=== PATIENT | female | born 1995 | race Caucasian/White ===

== ENCOUNTER 2016-09-04 17:11 | Observation (INO) | payer OTHER ==
[~2016-09-04] VITALS: Ht 149.9 cm; Wt 59.9 kg
[2016-09-04 18:00] VITALS: BP 115/59
[2016-09-04 20:43] LABS: BASOPHILS # (AUTO) 0.1 K/uL (0.00-0.22); BASOPHILS % (AUTO) 1.3 % (0.0-2.0); EOSINOPHILS # (AUTO) 0.2 K/uL (0-0.4); EOSINOPHILS % (AUTO) 1.7 % (0.0-4.0); HEMOGLOBIN 10.9 g/dL (12.0-16.0); LYMPHOCYTES # (AUTO) 1.6 K/uL (2.5-16.5); LYMPHOCYTES % (AUTO) 17.6 % (20.5-51.1); MEAN CORPUSCULAR HEMOGLOBIN 30 pg (27-31); MEAN CORPUSCULAR HGB CONC 32 g/dL (33-37); MEAN CORPUSCULAR VOLUME 94 fL (80-94); MONOCYTES # (AUTO) 0.5 K/uL (0.8-1.0); MONOCYTES % (AUTO) 5.4 % (1.7-9.3); NEUTROPHILS # (AUTO) 6.8 K/uL (1.8-7.7); PLATELET COUNT (AUTO) 149 K/uL (140-450); RED BLOOD CELL COUNT(AUTO) 3.63 MIL/uL (4.20-5.40); RED CELL DISTRIBUTION WIDTH 12.8 % (11.6-13.7); WHITE BLOOD COUNT (AUTO) 9.2 K/uL (4.8-10.8)
[2016-09-04 21:01] LABS: PROTHROMBIN TIME 9.8 secs (10.8-13.4)
[2016-09-04] MEDS ORDERED: PREN-546 PO (21:51)
[2016-09-04] MEDS ORDERED: FERR-193 PO (21:51)
== END 2016-09-04 22:40 | disposition home or self-care (01) ==
LOC: MLD 17:11
PROVIDERS: ADMIT Obstetrics & Gynecology; ATTEND Obstetrics & Gynecology
DX: O46.93 Antepartum hemorrhage, unspecified, third trimester (principal); O26.893 Other specified pregnancy related conditions, third trimester; M54.9 Dorsalgia, unspecified; R11.0 Nausea; Z3A.38 38 weeks gestation of pregnancy
CPT/HCPCS: 36415; 76805; 85025; 85379; 85384; 85610; 85730; G0378; Q0092; 81000

== ENCOUNTER 2016-09-13 16:05 | Inpatient (IN) | payer OTHER ==
[~2016-09-13] VITALS: Ht 149.9 cm; Wt 61.2 kg
[~2016-09-13 16:05] MED LIST: FERR-193 PO; PREN-546 PO
[2016-09-13 17:08] VITALS: BP 110/67
[2016-09-13] MEDS ORDERED: MISOPROSTOL 25 MCG TAB ONE (21:21)
[2016-09-13] MEDS: LACTATED RINGERS 1,000 ML IV SCH (21:50)
[2016-09-13] MEDS ORDERED: NALBUPHINE HYDROCHLORIDE 10 MG/ML VIAL IM SCH (22:35)
[2016-09-13] MEDS ORDERED: NALBUPHINE HYDROCHLORIDE 10 MG/ML VIAL IVP PRN (22:35)
[2016-09-13] MEDS ORDERED: OXYTOCIN 10 UNITS/ML VIAL IM SCH (22:35)
[2016-09-13] MEDS ORDERED: LACTATED RINGERS 500 ML IV SCH (22:35)
[2016-09-13] MEDS ORDERED: MISOPROSTOL 25 MCG TAB VG SCH (22:45)
[2016-09-13 23:41] LABS: BASOPHILS % (AUTO) 0.3 % (0.0-2.0); EOSINOPHILS # (AUTO) 0.2 K/uL (0-0.4); EOSINOPHILS % (AUTO) 1.5 % (0.0-4.0); HEMATOCRIT 32.8 % (36-48); HEMOGLOBIN 10.9 g/dL (12.0-16.0); LYMPHOCYTES # (AUTO) 1.7 K/uL (2.5-16.5); LYMPHOCYTES % (AUTO) 14.5 % (20.5-51.1); MEAN CORPUSCULAR HEMOGLOBIN 31 pg (27-31); MEAN CORPUSCULAR HGB CONC 33 g/dL (33-37); MEAN CORPUSCULAR VOLUME 93 fL (80-94); MONOCYTES # (AUTO) 0.7 K/uL (0.8-1.0); MONOCYTES % (AUTO) 6.4 % (1.7-9.3); NEUTROPHILS # (AUTO) 9.1 K/uL (1.8-7.7); NEUTROPHILS % (AUTO) 77.3 % (42.2-75.2); PLATELET COUNT (AUTO) 154 K/uL (140-450); RED BLOOD CELL COUNT(AUTO) 3.53 MIL/uL (4.20-5.40); RED CELL DISTRIBUTION WIDTH 13.4 % (11.6-13.7); WHITE BLOOD COUNT (AUTO) 11.7 K/uL (4.8-10.8)
[2016-09-13 23:56] LABS: APPEARANCE,URINE CLEAR (CLEAR); BILIRUBIN,URINE NEGATIVE (NEGATIVE); BLOOD, URINE TRACE-I (NEGATIVE); COLOR,URINE YELLOW (YELLOW); LEUKOCYTE ESTERASE ,URINE 1+ (NEGATIVE); NITRITE, URINE NEGATIVE (NEGATIVE); PROTEIN,URINE NEGATIVE (NEGATIVE); UGLUCOSE NEGATIVE (NEGATIVE)
[2016-09-14 00:07] LABS: BACTERIA,URINE OCCASSIONAL /HPF (None Seen); RBC,URINE 0-5 (RARE) /HPF (0-5); SQUAMOUS EPITHELIAL CELL,UR 4-10 (MOD) /LPF (0-3 (FEW)); WBC,URINE 0-5 (RARE) /HPF (0-5)
[2016-09-14 00:27] LABS: AMPHETAMINE, URINE NEG. ng/ml (NEG <=1000); BARBITURATE, URINE NEG. ng/ml (NEG <=200); BENZODIAZEPINE, URINE NEG. ng/mL (NEG <=200); CANNABINOID, URINE NEG. ng/mL (NEG <=50); COCAINE, URINE NEG. ng/mL (NEG <=300); OPIATE, URINE NEG. ng/mL (NEG <=2000); PHENCYCLIDINE SCREEN,URINE NEG. ng/mL (NEG <=25)
[2016-09-14] MEDS ORDERED: PROMETHAZINE 25 MG/ML VIAL ONE (02:53)
[2016-09-14] MEDS ORDERED: NALBUPHINE HYDROCHLORIDE 10 MG/ML VIAL ONE (02:53)
[2016-09-14] MEDS ORDERED: PROMETHAZINE 25 MG/ML VIAL IVP PRN (02:55)
[2016-09-14] MEDS ORDERED: OXYTOCIN 20 UNITS/LR PREMIX 1,000 ML IV SCH ×2 (03:00→15:56)
[2016-09-14] MEDS ORDERED: BUPIVACAINE 0.125%/NS PREMIX 250 ML ONE (04:47)
--- NOTE | 2016-09-14 09:05 | NUR ---
PATIENT HAS BEEN SCREENED AND CATEGORIZED LOW NUTRITION RISK. PATIENT WILL BE SEEN WITHIN 7 DAYS OF ADMISSION. 09/20/[address]
[2016-09-14] MEDS ORDERED: LIDOCAINE 1% 50 ML ONE (10:12)
[2016-09-14] MEDS ORDERED: OXYTOCIN 10 UNITS/ML VIAL ONE (10:16)
[2016-09-14] MEDS ORDERED: LIDOCAINE 1% 500 MG/50 ML VIAL INJ SCH (11:25)
[2016-09-14] MEDS ORDERED: OXYTOCIN 20 UNITS/LR PREMIX 1,000 ML IV ONE (14:23)
[2016-09-14] MEDS: LACTATED RINGERS 1,000 ML IV SCH (14:26)
[2016-09-14] MEDS ORDERED: METHYLERGONOVINE 0.2 MG/ML AMP ONE (15:27)
[2016-09-14] MEDS ORDERED: MEASLES, MUMPS, AND RUBELLA 1 VIAL SQVAC PRN (16:00)
[2016-09-14] MEDS ORDERED: SODIUM PHOSPHATE 118 ML ENEM RC PRN (16:00)
[2016-09-14] MEDS ORDERED: DOCUSATE SODIUM 100 MG GELCAP PO PRN (16:00)
[2016-09-14] MEDS ORDERED: ACETAMINOPHEN 325 MG TAB PO PRN (16:00)
[2016-09-14] MEDS ORDERED: WITCH HAZEL 40 PAD PACKAGE TP PRN (16:00)
[2016-09-14] MEDS ORDERED: BENZOCAINE/MENTHOL 20%-0.5% 60 GM CAN TP PRN (16:00)
[2016-09-14] MEDS: oxyCODONE/APAP 5/325 MG 1 TAB TAB PO PRN (19:40)
[2016-09-15] MEDS: oxyCODONE/APAP 5/325 MG 1 TAB TAB PO PRN ×2 (02:09→16:22)
[2016-09-15 09:03] LABS: HEMATOCRIT 23.9 % (36-48); HEMOGLOBIN 7.9 g/dL (12.0-16.0); MEAN CORPUSCULAR HEMOGLOBIN 31 pg (27-31); MEAN CORPUSCULAR HGB CONC 33 g/dL (33-37); MEAN CORPUSCULAR VOLUME 95 fL (80-94); PLATELET COUNT (AUTO) 141 K/uL (140-450); RED BLOOD CELL COUNT(AUTO) 2.53 MIL/uL (4.20-5.40); RED CELL DISTRIBUTION WIDTH 13.9 % (11.6-13.7); WHITE BLOOD COUNT (AUTO) 23.3 K/uL (4.8-10.8)
[2016-09-15 09:27] LABS: BAND % (MANUAL) 25 % (0-8); EOSINOPHILS % (MANUAL) 1 % (0-4); LYMPHOCYTES % (MANUAL) 9 % (20-46); MONOCYTES % (MANUAL) 1 % (5-12); NEUTROPHILS % (MANUAL) 63 (43-65)
[2016-09-16] MEDS: oxyCODONE/APAP 5/325 MG 1 TAB TAB PO PRN (00:02)
[2016-09-16] MEDS ORDERED: FERR325E14 PO (13:31)
[2016-09-16] MEDS ORDERED: ACET-9800 PO (13:32)
== END 2016-09-16 14:50 | disposition home or self-care (01) | DRG 560 ==
LOC: MLD 16:05 → OBSVTOIN 20:30 → MFCC 09-14 17:45
PROVIDERS: ADMIT Obstetrics & Gynecology; ATTEND Obstetrics & Gynecology
PROC: 10E0XZZ Delivery of Products of Conception, External Approach (ICD-10-PCS; principal; 2016-09-14)
PROC: 0HQ9XZZ Repair Perineum Skin, External Approach (ICD-10-PCS; 2016-09-14)
PROC: 3E0S3CZ (ICD-10-PCS; 2016-09-14)
PROC: 00HU33Z Insertion of Infusion Device into Spinal Canal, Percutaneous Approach (ICD-10-PCS; 2016-09-14)
PROC: 3E0234Z Introduction of Serum, Toxoid and Vaccine into Muscle, Percutaneous Approach (ICD-10-PCS; 2016-09-14)
PROC: 3E0P7GC Introduction of Other Therapeutic Substance into Female Reproductive, Via Natural or Artificial Opening (ICD-10-PCS; 2016-09-14)
DX: O77.0 Labor and delivery complicated by meconium in amniotic fluid (principal); O70.0 First degree perineal laceration during delivery; Z3A.40 40 weeks gestation of pregnancy; Z37.0 Single live birth; Z82.5 Family history of asthma and other chronic lower respiratory diseases; Z82.49 Family history of ischemic heart disease and other diseases of the circulatory system; Z83.3 Family history of diabetes mellitus; Z83.49 Family history of other endocrine, nutritional and metabolic diseases; Z80.9 Family history of malignant neoplasm, unspecified; Z84.89 Family history of other specified conditions; Z23 Encounter for immunization
CPT/HCPCS: G0378 ×4; 36415; 51702; 59200; 59409; 76815; 80305; 81001; 85025; 86592; 86886; 86900; 86901; 87086; J2001; J2210; J2300; J2550; J2590; J3490; J7120; Q0092